=== PATIENT | male | born 1950 | race Caucasian/White ===

== ENCOUNTER 2024-03-31 13:20 | Outpatient (CLI) | payer OTHER | END 2024-03-31 13:21 | disposition home or self-care (01) | LOC: CT 13:20 | PROVIDERS: ATTEND Nurse Practitioner Family | DX: R10.9 Unspecified abdominal pain (principal); R91.8 Other nonspecific abnormal finding of lung field; K59.00 Constipation, unspecified; J98.4 Other disorders of lung; R60.9 Edema, unspecified | CPT/HCPCS: 71250; 74177 ==